=== PATIENT | female | born 1950 | race Caucasian/White ===

== ENCOUNTER 2018-06-30 14:53 | Observation (INO) ==
--- NOTE | 2018-06-30 15:08 | ERNOTE ---
Neuro HPI ER Record Presenting Symptoms: impaired speech Time Seen by Provider: 06/30/18 14:53 Source: patient Exam Limitations: no limitations Immunizations: IMMUNIZATION HX Immunizations Up to Date No History of Influenza Vaccine Yes Hx Pneumococcal Vaccination No Allergies/Adverse Reactions: Allergies Allergy/AdvReac Type Severity Reaction Status Date / Time No Known Allergies Allergy Verified 06/15/18 11:23 Home Medications: HOME MEDICATIONS Metoprolol Tartrate 50 mg PO DAILY 06/29/18 [Last Taken Unknown] - History of Present Illness Narrative: Patient had her first dose of chemo for her pancreatic cancer today. She has just finished her two hour infusions when she started to have a slurred speech around 14:40. I saw the patient in the annex around 14:45, denied any other symptoms. Review of Systems - Review of Systems Constitutional: Absent: recent illness, fever EYE: Absent: double vision, vision changes ENT: Absent: nose congestion, sore throat, throat swelling Respiratory: Absent: shortness of breath, cough, other Gastrointestinal/Abdominal: Absent: nausea, vomiting, abdominal pain Genitourinary: Present: no symptoms reported Musculoskeletal: Absent: back pain Neurological: Present: See HPI. 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 Clarence Gray, [facility]. History of biopsy Onset Date: ~05/2006 kidney History of colonoscopy Onset Date: 01/24/15 01/24/15 Tinguely-hyperplastic polyp x2. Repeat in 5 yrs d/t family hx. History of esophagogastroduodenoscopy (EGD) Onset Date: ~05/2018 Family History: Family History (Last Reviewed 06/30/18 @ 15:09 by Myesha Murphy RN) Brother Hypertension CVA (cerebral vascular accident) Cancer kidney-dx age 69 Sister Hypertension Father , age 59-MVA MVA (motor vehicle accident) age 59 Mother , age 92-colon cancer Cancer Colon-dx age 91 Brother Alive and well Sister Alive and well Social History: Preferred Language Sinhala Smoking Status Former smoker Abuse History No History of abuse Psych History No pertinent hx (Last Updated 06/10/18 @ 11:35 by Sujatha Henry DO) No Social History Section defined Physical Exam - Physical Exam General Appearance: Present: wd/wn, alert, no apparent distress, anxious Head Exam: Present: normal inspection, no evidence of injury Eye Exam: Normal inspection: bilateral, PERRL: bilateral, EOMI: bilateral Ears, Nose, Throat: Present: normal ENT inspection, normal pharynx. Absent: pharyngeal erythema, pharyngeal swelling Neck: Present: normal inspection, nontender Respiratory: Present: no respiratory distress, normal breath sounds, chest nontender, lungs clear. 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 Absent: skin rash [place] Coma Scale - Assess Eye Opening: Spontaneous Motor: Obeys Commands Verbal: Oriented - Total Coma Scale Total: 15 Initial Stroke Assessment - Date/Time of assessment Stroke Scale Date: 06/30/18 Stroke Scale Time: 14:45 - NIH Stroke Scale Level of Consciousness: Alert LOC Questions (Year and Age): Answers both correctly LOC Commands (open/close eyes/fist): Performs both correctly Lateral Gaze Paresis: None Visual Field Loss: No visual loss Facial Palsy: Normal movement Right Arm Motor (10 sec hold): No drift Left Arm Motor (10 sec hold): No drift Right Leg Motor (5 sec hold): No drift Left Leg Motor (5 sec hold): No drift Limb Ataxia (finger/nose heel/miller): Absent Sensory Loss (pinprick arms/legs/face): No sensory loss Language Aphasia (description/naming/reading): No aphasia; normal Dysarthria (speech clarity): Slurring, intelligeble Neglect Inattention (visual/tactile/auditory/spatial/person): No neglect Initial Stroke Scale Score:: 1 Progress - Results and Orders Patient's Lab Results:: I have reviewed the patient's lab results. - Vital Signs Patient's Vital Signs:: I have reviewed the patient's vital signs. - EKG EKG: NSR - sinustachycardia, nonspecific ST T wave changes EKG read: Interp. by me - CT/Ultrasound CT/Ultrasound Narrative: CT head: no acute changes - Progress/Reassessment Progress Note-Subjective: 06/30/18 15:06 mildly slurred speech 06/30/18 15:[address] with radiologist 06/30/18 15:38 speech much more fluent, able to tell story of cancer diagnosis 06/30/18 15:[address] Don 06/30/18 15:[address] Merino (oncology partner of Dr Hoyos), thinks it is unlikely drug reaction,more likely TIA do not give 48hrs infusion for now, appropriate to work up further for TIA 06/30/18 15:[address] Don, okay to admit for observation for TIA Departure Clinical Impression: TIA (transient ischemic attack) Pancreatic cancer Qualifiers: Pancreatic malignancy location: unspecified Qualified Code(s): C25.9 - Malignant neoplasm of pancreas, unspecified - Departure Disposition: Still a patient Condition: Stable
[2018-06-30 15:12] LABS: Hematocrit 29.9 % (37.0-47.0); Hemoglobin 9.9 gm/dL (12.5-16.0); Mean Cell Volume 97.4 fl (78-100); Mean Corpuscular Hemoglobin 32.2 pg (27-31); Mean Corpuscular Hgb Conc 33.1 g/dl (32-36); Mean Platelet Volume 9.5 fl (8-12.5); Neutrophil # 7.2 K/mm3 (1.3-6.0); Neutrophil % 95.5 % (42-75.0); Platelet Count 255 K/mm3 (150-450); Red Blood Count 3.07 M/mm3 (4.2-5.4); Red Cell Distribution Width 14.9 % (11.5-14.0); White Blood Count 7.6 K/mm3 (4.0-10.5)
[2018-06-30 15:26] LABS: Albumin * 2.2 gm/dl (3.4-5.0); Anion Gap 18.1 mmol/L (6.8-13.8); Bilirubin, Total 1.3 mg/dL (0.0-1.1); Ca. Corrected For Albumin 9.9 mg/dL (8.4-10.2); Calcium * 8.8 mg/dL (7.9-10.9); Carbon Dioxide 16.4 mmol/L (24-32.6); Potassium 3.5 mmol/L (3.4-4.6); Total Protein 7.2 gm/dL (6.2-8.2)
[2018-06-30 15:44] LABS: Prothrombin Time (Patient) 13.4 Seconds (9.0-11.0)
[2018-06-30 15:46] LABS: INR 1.34 INR (0.90-1.10)
[2018-06-30] MEDS ORDERED: ASPIRIN 81 MG TAB.CHEW PO ONE (16:00)
--- NOTE | 2018-06-30 21:06 | HP ---
Chief Complaint - Chief Complaint Date of Service: 06/30/18 Time of Service: 21:06 Chief Complaint: Difficulty speaking History of Present Illness: Loraine is a 68 yo female with pancreatic cancer who was in the annex today for her first treatment of chemotherapy. She had received the majority of her treatment when she bagan having difficulty speaking. Her chemo was stopped and she was sne to the ER for evaluation. There she continued to have difficulty with speaking, but this quickly resolved. She had no other reported symptoms. She was aware of what was going on, had all other neuromuscular control, and no difficulty swallowing. She has not had any other symptoms like this before. Although symptoms have completely resolved ER contacted medicine for admission for overnight monitoring of neurological status. There was no noted lip or tongue swelling. 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 Clarence Gray, [facility]. History of biopsy Onset Date: ~05/2006 kidney History of colonoscopy Onset Date: 01/24/15 01/24/15 Tinguely-hyperplastic polyp x2. Repeat in 5 yrs d/t family hx. History of esophagogastroduodenoscopy (EGD) Onset Date: ~05/2018 Family History: Family History (Last Reviewed 07/12/18 @ 14:31 by Mariajose Newberry RN) Brother Hypertension CVA (cerebral vascular accident) Cancer kidney-dx age 69 Sister Hypertension Father , age 59-MVA MVA (motor vehicle accident) age 59 Mother , age 92-colon cancer Cancer Colon-dx age 91 Brother Alive and well Sister Alive and well Social History: Patient Lives/Resources With Spouse Utilized Occupation Retired Preferred Language Sudanese Do you have any jain or No: Yazidism cultural preference? Smoking Status Former smoker Have you smoked in the past 12 No: quit 2002 months Do you dip or chew tobacco No Abuse History No History of abuse Psych History No pertinent hx Alcohol Use none Drug Use none (Last Updated 06/10/18 @ 11:35 by Sujatha Henry DO) No Social History Section defined Review Of Systems (GEN) - Review of Systems Generalized/Overall Review: Present: Weight loss. Absent: Weakness, Chills, Fever EENTM: Present: No Symptoms Reported Respiratory: Absent: Cough, Shortness of Breath Cardiac: Absent: Chest Pain, Edema, Syncope Abdominal: Present: Nausea, Abdominal Pain. Absent: Vomiting, Hematemesis, Constipation, Diarrhea, Melena Genitourinary: Present: No Symptoms Reported Neurological: Present: Weakness, Other - dysarthria Endocrine: Present: No Symptoms Reported Immunizations: IMMUNIZATION HX Immunizations Up to Date No History of Influenza Vaccine Yes Hx Pneumococcal Vaccination No Allergies/Adverse Reactions: Allergies Allergy/AdvReac Type Severity Reaction Status Date / Time No Known Allergies Allergy Verified 07/12/18 14:31 Home Medications: HOME MEDICATIONS Metoprolol Tartrate 50 mg PO DAILY 06/29/18 [Last Taken 06/29/18] Aspirin [Aspirin Chewable] 81 mg PO DAILY #30 tab.chew 07/01/18 [Last Taken Unknown] clopidogrel 75 mg tablet 75 mg PO DAILY #30 tab 07/07/18 [Last Taken Unknown] mirtazapine 15 mg tablet 15 mg PO HS #30 tab 07/07/18 [Last Taken Unknown] rosuvastatin 10 mg tablet 10 mg PO DAILY #30 tab 07/07/18 [Last Taken Unknown] Exam - Exam Vital Signs: Vital Signs - Last Taken Temp 36.7 C 06/30/18 20:11 Pulse 103 H 06/30/18 20:11 Resp 12 06/30/18 20:11 BP 112/72 06/30/18 20:11 Pulse Ox 95 06/30/18 20:11 Constitutional: Present: Alert, Oriented x3, Cooperative ENT Exam: Present: hearing grossly normal Respiratory: Present: lungs clear, normal breath sounds Cardiovascular/Chest: Present: regular rate, rhythm, no edema, no murmur Abdomen: Present: nondistended, no rebound tenderness, tender - diffuse, hypoactive Skin Exam: Present: normal color, warm/dry, no cyanosis Lymphatic: Present: no adenopathy Neurologic: Present: 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 Absent: aphasia, facial droop, sensory deficit Appearance: Present: appropriate appearance, appropriate insight Eye contact: Present: cooperative, good eye contact, normal speech Thoughts: Present: normal thought pattern, no apparent hallucination Diagnostic Studies: Abnormal Lab Results 06/30/18 06/30/18 06/30/18 Range/Units 15:05 15:05 15:05 RBC 3.07 L (4.2-5.4) M/mm3 Hgb 9.9 L (12.5-16.0) gm/dL Hct 29.9 L (37.0-47.0) % MCH 32.2 H (27-31) pg RDW 14.9 H (11.5-14.0) % Neutrophils % 95.5 H (42-75.0) % Lymphocytes % 2.4 L (20-51) % Neutrophils # 7.2 H (1.3-6.0) K/mm3 Lymphocytes # 0.18 L (1.5-3.5) k/mm3 ESR 112 H (0-15) mm/hr PT 13.4 H (9.0-11.0) Seconds INR (Anticoag Therapy) 1.34 H (0.90-1.10) INR PTT (Navarro) 40.0 H (24-32) Seconds Sodium (132-142) mmol/L Carbon Dioxide (24-32.6) mmol/L Anion Gap (6.8-13.8) mmol/L Creatinine (0.4-1.4) mg/dL Est GFR (Non-Af Amer) (60-130) mL/min Random Glucose (70-110) mg/dL Total Bilirubin (0.0-1.1) mg/dL Alkaline Phosphatase (50-170) U/L Albumin (3.4-5.0) gm/dl 06/30/18 Range/Units 15:05 RBC (4.2-5.4) M/mm3 Hgb (12.5-16.0) gm/dL Hct (37.0-47.0) % MCH (27-31) pg RDW (11.5-14.0) % Neutrophils % (42-75.0) % Lymphocytes % (20-51) % Neutrophils # (1.3-6.0) K/mm3 Lymphocytes # (1.5-3.5) k/mm3 ESR (0-15) mm/hr PT (9.0-11.0) Seconds INR (Anticoag Therapy) (0.90-1.10) INR PTT (Nicole) (24-32) Seconds Sodium 128 L (132-142) mmol/L Carbon Dioxide 16.4 L (24-32.6) mmol/L Anion Gap 18.1 H (6.8-13.8) mmol/L Creatinine 1.54 H (0.4-1.4) mg/dL Est GFR (Non-Af Amer) 36 L (60-130) mL/min Random Glucose 276 H D (70-110) mg/dL Total Bilirubin 1.3 H (0.0-1.1) mg/dL Alkaline Phosphatase 354 H (50-170) U/L Albumin 2.2 L (3.4-5.0) gm/dl Laboratory Results WBC 7.6 K/mm3 (4.0-10.5) 06/30/18 15:05 RBC 3.07 M/mm3 (4.2-5.4) L 06/30/18 15:05 Hgb 9.9 gm/dL (12.5-16.0) L 06/30/18 15:05 Hct 29.9 % (37.0-47.0) L 06/30/18 15:05 MCV 97.4 fl (78-100) 06/30/18 15:05 MCH 32.2 pg (27-31) H 06/30/18 15:05 MCHC 33.1 g/dl (32-36) 06/30/18 15:05 RDW 14.9 % (11.5-14.0) H 06/30/18 15:05 Plt Count 255 K/mm3 (150-450) 06/30/18 15:05 MPV 9.5 fl (8-12.5) 06/30/18 15:05 Immature Gran % (Auto) 0.40 % (0.001-0.429) 06/30/18 15:05 Immature Gran # (Auto) 0.03 K/mm3 (0.000-0.0310) 06/30/18 15:05 Neutrophils % 95.5 % (42-75.0) H 06/30/18 15:05 Lymphocytes % 2.4 % (20-51) L 06/30/18 15:05 Monocytes % 1.6 % (0.0-9) 06/30/18 15:05 Eosinophils % 0.0 % (0.0-3.0) 06/30/18 15:05 Basophils % 0.1 % (0.0-1.0) 06/30/18 15:05 Nucleated RBC % 0.0 k/mm3 (0-1) 06/30/18 15:05 Neutrophils # 7.2 K/mm3 (1.3-6.0) H 06/30/18 15:05 Lymphocytes # 0.18 k/mm3 (1.5-3.5) L 06/30/18 15:05 Monocytes # 0.1 k/mm3 (0.0-1.0) 06/30/18 15:05 Eosinophils # 0.0 k/mm3 (0.0-0.7) 06/30/18 15:05 Absolute Basophils 0.0 k/mm3 (0.0-0.1) 06/30/18 15:05 ESR 112 mm/hr (0-15) H 06/30/18 15:05 PT 13.4 Seconds (9.0-11.0) H 06/30/18 15:05 INR (Anticoag Therapy) 1.34 INR (0.90-1.10) H 06/30/18 15:05 PTT (Nicole) 40.0 Seconds (24-32) H 06/30/18 15:05 Sodium 128 mmol/L (132-142) L 06/30/18 15:05 Plasma Sodium 131 mmol/L (130-142) 06/30/18 15:05 Potassium 3.5 mmol/L (3.4-4.6) 06/30/18 15:05 Chloride 97 mmol/L (97-106) 06/30/18 15:05 Carbon Dioxide 16.4 mmol/L (24-32.6) L 06/30/18 15:05 Anion Gap 18.1 mmol/L (6.8-13.8) H 06/30/18 15:05 BUN 20 mg/dL (3-23) 06/30/18 15:05 Creatinine 1.54 mg/dL (0.4-1.4) H 06/30/18 15:05 Est GFR (Non-Af Amer) 36 mL/min (60-130) L 06/30/18 15:05 BUN/Creatinine Ratio 13.0 (9.0-21.6) 06/30/18 15:05 Random Glucose 276 mg/dL (70-110) H D 06/30/18 15:05 Calcium 8.8 mg/dL (7.9-10.9) 06/30/18 15:05 Calcium Adj for Albumin 9.9 mg/dL (8.4-10.2) 06/30/18 15:05 Total Bilirubin 1.3 mg/dL (0.0-1.1) H 06/30/18 15:05 AST 34 U/L (0-48) 06/30/18 15:05 ALT 34 U/L (19-67) 06/30/18 15:05 Alkaline Phosphatase 354 U/L (50-170) H 06/30/18 15:05 Total Protein 7.2 gm/dL (6.2-8.2) 06/30/18 15:05 Albumin 2.2 gm/dl (3.4-5.0) L 06/30/18 15:05 Assessment/Plan - Narrative Narrative: Loraine is a 68 yo female with pancreatic cancer. She had dysarthria that quickly resolved while receiving chemotherapy. Will admit to observation and monitor neurological status overnight. May also consider allergic reaction t o chemo, but this is not likely the reaction one would expect. Will plan to get outpatient neurological imaging. - Assessment/Plan (1) TIA (transient ischemic attack) Problem: Acute (2) Pancreatic cancer Problem: Chronic Qualifiers: Pancreatic malignancy location: unspecified Qualified Code(s): C25.9 - Malignant neoplasm of pancreas, unspecified
[2018-07-01] MEDS ORDERED: METOPROLOL TARTRATE 50 MG TABLET PO SCH (12:30)
[2018-07-01] MEDS ORDERED: HEPARIN SOD.,PORCINE 100 UNITS/ML IV ONE (15:01)
--- NOTE | 2018-07-01 15:07 | DS ---
(1) TIA (transient ischemic attack) Problem: Acute Description of Stay: Loraine is a 68 yo female with pancreatic cancer who was admitted to observation after a brief dysarthria episode at the end of her first chemotherapy infusion. She had difficulty speaking for about an hour, which resolved spontaneously. She had no focal sensory loss or motor weakness. She had a head CT and a chest xray which showed no acute abnormality. She was admitted for observation but had no further episodes. She will have an outpatient brain MRI with and without contrast for further evaluation. She will follow up with oncology in regards to the safety of chemotherapy. She was receiving the last minutes of the infusion when her symptoms began, but I feel these symptoms are atypical to be a reaction from the infusion itself. Leading diagnosis at this time is a TIA. Will therefore have her start taking a low dose aspirin daily. Procedures Performed: none Results and Findings: Lab Pending Results 06/30/18 15:05: WBC 7.6, RBC 3.07 L, Hgb 9.9 L, Hct 29.9 L, MCV 97.4, MCH 32.2 H, MCHC 33.1, RDW 14.9 H, Plt Count 255, MPV 9.5, Immature Gran % (Auto) 0.40, Immature Gran # (Auto) 0.03, Neutrophils % 95.5 H, Lymphocytes % 2.4 L, Monocytes % 1.6, Eosinophils % 0.0, Basophils % 0.1, Nucleated RBC % 0.0, Neutrophils # 7.2 H, Lymphocytes # 0.18 L, Monocytes # 0.1, Eosinophils # 0.0, Absolute Basophils 0.0 06/30/18 15:05: ESR 112 H 06/30/18 15:05: PT 13.4 H, INR (Anticoag Therapy) 1.34 H, PTT (Nicole) 40.0 H 06/30/18 15:05: Sodium 128 L, Plasma Sodium 131, Potassium 3.5, Chloride 97, Carbon Dioxide 16.4 L, Anion Gap 18.1 H, BUN 20, Creatinine 1.54 H, Est GFR (Non-Af Amer) 36 L, BUN/Creatinine Ratio 13.0, Random Glucose 276 H D, Calcium 8.8, Calcium Adj for Albumin 9.9, Total Bilirubin 1.3 H, AST 34, ALT 34, Alkaline Phosphatase 354 H, Total Protein 7.2, Albumin 2.2 L Discharge Location: Home Disposition: Home self-care Condition: Fair Discharge Activity: Activity as tolerated Discharge Diet: General/regular food Referrals: Raghav Don DO [Primary Care Provider] - One Week Michael Merino MD [Non Staff Physicians] - 07/04/18 1:00 pm Problem Oriented Discharge Instructions to Patient/Family: Transient Ischemic Attack, [id number] Additional Patient Instructions (free text): -Please make TCM appointment unless prison discharge. Thank you! Annette @ [phone]. Appointment with oncologist, Dr. Merino, on WednesdayJuly 04 at 1:00 PM at [facility]. [address] [place] [address]. Park on . there's a large parking lot there, go in main entrance, take a right and you will see the sign for ([facility]). . Prescriptions (Any new or edited meds): Aspirin [Aspirin Chewable] 81 mg PO DAILY #30 tab.chew Complete Home Medications List: Complete Home Medication List: Metoprolol Tartrate 50 mg PO DAILY 06/29/18 Aspirin [Aspirin Chewable] 81 mg PO DAILY #30 tab.chew 07/01/18 Metoprolol Tartrate [Lopressor] 50 mg PO DAILY tablet 07/01/18 Amb Orders for Discharge: MRI Brain W/WO * Time Frame: 07/05/18, Location: Radiology
[2018-07-01 15:54] VITALS: BP 112/76
== END 2018-07-01 16:09 | disposition home or self-care (01) ==
LOC: ER 14:53 → MS 14:53
PROVIDERS: ADMIT Family Medicine; ATTEND Family Medicine
CPT/HCPCS: 36415; 70450; 71010; 71045; 80053; 85025; 85610; 85652; 85730; 93005; 96365; 99285; G0378

== ENCOUNTER 2018-07-12 10:59 | Inpatient (IN) ==
[2018-07-12] MEDS ORDERED: NORMAL SALINE 1,000 ML IV ONE ×2 (11:12→12:25)
--- NOTE | 2018-07-12 11:16 | ERNOTE ---
Medical Problem HPI - General Chief Complaint: General Assessment Time Seen by Provider: 07/12/18 11:08 Source: patient, family Exam Limitations: no limitations - Immun/Allergies/Home Medications Immunizations: IMMUNIZATION HX Immunizations Up to Date No History of Influenza Vaccine Yes Hx Pneumococcal Vaccination No Allergies/Adverse Reactions: Allergies No Known Allergies Allergy (Verified 07/12/18 11:07) Home Medications: HOME MEDICATIONS Metoprolol Tartrate 50 mg PO DAILY 06/29/18 [Last Taken 06/29/18] Aspirin [Aspirin Chewable] 81 mg PO DAILY #30 tab.chew 07/01/18 [Last Taken Unknown] clopidogrel 75 mg tablet 75 mg PO DAILY #30 tab 07/07/18 [Last Taken Unknown] mirtazapine 15 mg tablet 15 mg PO HS #30 tab 07/07/18 [Last Taken Unknown] rosuvastatin 10 mg tablet 10 mg PO DAILY #30 tab 07/07/18 [Last Taken Unknown] - History of Present History Narrative: Patient is currently being treated for pancreatic cancer and ever since the first chemotherapy treatment patient has had uncontrolled diarrhea. Patient comes in now week, feels dehydrated and is lost all taste for any food. Timing: constant Severity: moderate, severe Review of Systems - Review of Systems Constitutional: Present: See HPI EYE: Present: no symptoms reported ENT: Present: See HPI Respiratory: Present: no symptoms reported Cardiology: Present: no symptoms reported Gastrointestinal/Abdominal: Present: See HPI Genitourinary: Present: no symptoms reported Musculoskeletal: Present: no symptoms reported Skin: Present: no symptoms reported Neurological: Present: no symptoms reported Endocrine: Present: no symptoms reported Hematologic/Lymphatic: Present: no symptoms reported Psych: Present: no symptoms reported Medical History (Last Reviewed 07/12/18 @ 11:08 by Annita Freitas RN) Elevated liver enzymes (Acute) Onset Date: 04/03/18 Hypertension (Chronic) Onset Date: ~03/28/04 Chronic renal insufficiency (Chronic) Onset Date: ~04/24/10 Stage 4 CKD (chronic kidney disease) (Chronic) Onset Date: Unknown 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 Clarence Gray, [facility]. History of biopsy Onset Date: ~05/2006 kidney History of colonoscopy Onset Date: 01/24/15 01/24/15 Tinguely-hyperplastic polyp x2. Repeat in 5 yrs d/t family hx. History of esophagogastroduodenoscopy (EGD) Onset Date: ~05/2018 Family History: Family History (Last Reviewed 07/12/18 @ 11:08 by Annita Freitas RN) Brother Hypertension CVA (cerebral vascular accident) Cancer kidney-dx age 69 Sister Hypertension Father , age 59-MVA MVA (motor vehicle accident) age 59 Mother , age 92-colon cancer Cancer Colon-dx age 91 Brother Alive and well Sister Alive and well Social History: Preferred Language Burmese Smoking Status Former smoker Abuse History No History of abuse Psych History No pertinent hx Alcohol Use none Drug Use none (Last Reviewed 07/07/18 @ 10:19 by Edwige Kat RN) No Social History Section defined Physical Exam - Physical Exam General Appearance: Present: wd/wn, alert, moderate distress, cachetic Head Exam: Present: normal inspection, no evidence of injury Eye Exam: Normal inspection: bilateral, PERRL: bilateral Ears, Nose, Throat: Present: dry mucous membranes, other - Thrush-like appearance to the oral cavity Neck: Present: normal inspection, nontender Respiratory: Present: no respiratory distress, normal breath sounds, no accessory muscle use, chest nontender, lungs clear Cardiovascular/Chest: Present: no murmur, normal peripheral pulses, tachycardia Gastrointestinal/Abdominal: Present: normal bowel sounds, nondistended, soft, no organomegaly, tenderness - Generalized mild Rectal Exam: Present: deferred Pelvic Exam: Present: deferred Back Exam: Present: normal inspection, normal range of motion Extremity Exam: Present: normal inspection, non-tender, no edema, normal range of motion Neurological Exam: Present: alert, oriented, normal mood/affect Skin Exam: Present: normal color, warm/dry Lymphatic Exam: Present: no adenopathy Progress - Results and Orders Patient's Lab Results:: I have reviewed the patient's lab results. - Vital Signs Patient's Vital Signs:: I have reviewed the patient's vital signs. Vital Signs: Vital Signs 07/12/18 11:04 Temperature 35.8 C L Pulse Rate 114 H Respiratory Rate 12 Blood Pressure 95/69 O2 Sat by Pulse Oximetry 95 - X-Ray X-Ray #1 X-Ray: abdomen Interpretation: Reviewed by me - Progress/Reassessment Chief Complaint: General Assessment Plan - Plan Plan: Patient appears to be in acute renal failure secondary to dehydration, although this could be a profound reaction to her chemotherapy as her white count is 1.1. Patient also appears to have an infectious colitis being present as she has 24% bands present on her blood work. Patient reacted rather violently to only half a dose of her chemotherapy and I had a discussion with both patient and the family regarding hospice care for her. Patient will be admitted for IV hydration, as we will attempt to try to get her renal function back to her baseline. Patient also be started on antibiotics for the colitis and the patient and the family requested that she be a DNR. Departure Clinical Impression: Dehydration, severe, Infectious colitis - Departure Disposition: Still a patient Condition: Fair Referrals: Raghav Don DO [Primary Care Provider] - Critical Care Note - Critical Care Note Total Time (mins): 40 Comments: Patient required several liters of normal saline just to help stabilize her blood pressure. Patient will need to be admitted and likely hospice consult as we might have reached the limit of what we can get back for her. She appears to have a neutropenic infectious colitis which will also be problematic and antibiotics were started for her.
[2018-07-12 11:49] LABS: Hematocrit 27.7 % (37.0-47.0); Hemoglobin 9.4 gm/dL (12.5-16.0); Mean Corpuscular Hemoglobin 31.2 pg (27-31); Mean Corpuscular Hgb Conc 33.9 g/dl (32-36); Platelet Count 157 K/mm3 (150-450); Red Blood Count 3.01 M/mm3 (4.2-5.4); Red Cell Distribution Width 14.2 % (11.5-14.0); White Blood Count 1.1 K/mm3 (4.0-10.5)
[2018-07-12 11:51] LABS: Total Cells Counted 100
[2018-07-12 12:15] LABS: Neutrophil 35 % (42-75)
[2018-07-12 12:16] LABS: Band 24 % (0-2.0); Immature Granulocyte 13 (0-1); Lymphocyte 16 % (20-51); Monocyte 12 % (0-9); Neutrophil # 0.4 K/mm3 (1.3-6.0); Platelet Estimate Normal (NORMAL)
[2018-07-12 12:17] LABS: Hypochromia 1+; Microcytosis 1+
[2018-07-12 12:18] LABS: Albumin * 1.5 gm/dl (3.4-5.0); Anion Gap 25.6 mmol/L (6.8-13.8); BUN/Creatinine Ratio 16.8 (9.0-21.6); Bilirubin, Total 0.8 mg/dL (0.0-1.1); Ca. Corrected For Albumin 10.6 mg/dL (8.4-10.2); Calcium * 8.9 mg/dL (7.9-10.9); Carbon Dioxide 18.1 mmol/L (24-32.6); Potassium 3.7 mmol/L (3.4-4.6); Total Protein 6.5 gm/dL (6.2-8.2)
[2018-07-12] MEDS ORDERED: LEVOFLOXACIN IN DEXTROSE 5 % 500 MG/100 ML BAG IV SCH (13:30)
[2018-07-12 13:34] LABS: Urine Bilirubin 1 mg/dl (NEGATIVE); Urine Ketone Negative (NEGATIVE); Urine Nitrite Negative (NEGATIVE); Urine Protein 15 mg/dL (NEGATIVE); Urine Specific Gravity >=1.030 SP.GR. (1.005-1.010); Urine Urobilinogen Normal (NORMAL); Urine pH 5.5 pH (5.0-7.0)
[2018-07-12 13:45] LABS: Urine Appearance Clear (CLEAR); Urine Blood 5 /ul (NEGATIVE); Urine Color Yellow
[2018-07-12 13:46] LABS: Urine Amorphous Sediment Few - 1+ (NONE-FEW); Urine Bacteria TRACE; Urine RBC 0-5 /hpf (0-5); Urine WBC None Seen /hpf (0-5)
[2018-07-12] MEDS: metroNIDAZOLE 500 MG TABLET PO SCH (16:41)
[2018-07-12] MEDS: NORMAL SALINE 1,000 ML IV PRN (16:41)
--- NOTE | 2018-07-12 16:50 | HP ---
Chief Complaint - Chief Complaint Date of Service: 07/12/18 Time of Service: 16:49 Chief Complaint: Diarrhea, weakness, nausea, vomiting History of Present Illness: Loraine is a 68 yo female with pancreatic cancer. She has recently sta rted chemotherapy. She has had decreased appetite, reports last good meal was a week ago. She has nausea, vomiting, and diarrhea. Denies blood in stool. She reports decreased urination. She was supposed to have her next chemotherapy treatment tomorrow. Stool sample was collected in the ER and is positive for C. Diff. Two weeks ago she was admitted into observation after a brief episode of dysarthria during her first chemotherapy treatment. MRI showed a small potential ischemic infarct. She was started on Plavix and Crestor. She was also recently started on remeron last week for appetite stimulation, depression, and insomnia. Loraine and family had a discussion in the ER with the ERP in regards to hospice. She would like additional information at this time, but consents to hospice consultation. 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 Clarence Gray, [facility]. History of biopsy Onset Date: ~05/2006 kidney History of colonoscopy Onset Date: 01/24/15 01/24/15 Tinguely-hyperplastic polyp x2. Repeat in 5 yrs d/t family hx. History of esophagogastroduodenoscopy (EGD) Onset Date: ~05/2018 Family History: Family History (Last Reviewed 07/12/18 @ 14:31 by Mariajose Newberry RN) Brother Hypertension CVA (cerebral vascular accident) Cancer kidney-dx age 69 Sister Hypertension Father , age 59-MVA MVA (motor vehicle accident) age 59 Mother , age 92-colon cancer Cancer Colon-dx age 91 Brother Alive and well Sister Alive and well Social History: Patient Lives/Resources Home Utilized Preferred Language Romansh Do you have any moravian or No cultural preference? Smoking Status Former smoker Have you smoked in the past 12 No months Do you dip or chew tobacco No Abuse History No History of abuse Psych History No pertinent hx Alcohol Use none Drug Use none (Last Reviewed 07/07/18 @ 10:19 by Edwige Kat RN) No Social History Section defined Review Of Systems (GEN) - Review of Systems Generalized/Overall Review: Present: Weakness, Fatigue, Weight loss. Absent: Chills, Fever, Diaphoresis EENTM: Present: No Symptoms Reported Respiratory: Absent: Cough, Shortness of Breath Cardiac: Absent: Chest Pain, Edema, Palpitations Abdominal: Present: Nausea, Vomiting, Abdominal Pain, Diarrhea. Absent: Hematemesis, Melena, Bright blood from rectum Genitourinary: Present: Oliguria. Absent: Burning Musculoskeletal: Present: No Symptoms Reported Neurological: Present: Depressed Skin: Present: No Symptoms Reported Immunizations: IMMUNIZATION HX Immunizations Up to Date No History of Influenza Vaccine Yes Hx Pneumococcal Vaccination No Allergies/Adverse Reactions: Allergies Allergy/AdvReac Type Severity Reaction Status Date / Time No Known Allergies Allergy Verified 07/12/18 14:31 Home Medications: HOME MEDICATIONS Metoprolol Tartrate 50 mg PO DAILY 06/29/18 [Last Taken 06/29/18] Aspirin [Aspirin Chewable] 81 mg PO DAILY #30 tab.chew 07/01/18 [Last Taken Unknown] clopidogrel 75 mg tablet 75 mg PO DAILY #30 tab 07/07/18 [Last Taken Unknown] mirtazapine 15 mg tablet 15 mg PO HS #30 tab 07/07/18 [Last Taken Unknown] rosuvastatin 10 mg tablet 10 mg PO DAILY #30 tab 07/07/18 [Last Taken Unknown] Exam - Exam Vital Signs: Vital Signs - Last Taken Temp 36.0 C 07/12/18 13:21 Pulse 106 H 07/12/18 13:21 Resp 18 07/12/18 13:21 BP 90/60 07/12/18 13:21 Pulse Ox 98 07/12/18 13:21 Constitutional: Present: Alert, Oriented x3, Cooperative ENT Exam: Present: hearing grossly normal Eye Exam: bilateral eye: normal inspection Respiratory: Present: lungs clear, normal breath sounds Cardiovascular/Chest: Present: no murmur, tachycardia Abdomen: Present: nondistended, no hepatospenomegaly, tender - diffuse, hypoactive Extremity: Present: normal inspection Skin Exam: Present: normal color, warm/dry, no cyanosis Appearance: Present: appropriate appearance, appropriate insight Eye contact: Present: cooperative, good eye contact, normal speech Thoughts: Present: normal thought pattern, no apparent hallucination Diagnostic Studies: Abnormal Lab Results 07/12/18 07/12/18 07/12/18 Range/Units 11:35 11:35 13:16 WBC 1.1 L (4.0-10.5) K/mm3 RBC 3.01 L (4.2-5.4) M/mm3 Hgb 9.4 L (12.5-16.0) gm/dL Hct 27.7 L (37.0-47.0) % MCH 31.2 H (27-31) pg RDW 14.2 H (11.5-14.0) % Neutrophils % (Manual) 35 L (42-75) % Band Neuts % (Manual) 24 H (0-2.0) % Lymphocytes % (Manual) 16 L (20-51) % Monocytes % (Manual) 12 H (0-9) % Immature Granulocytes 13 H (0-1) Neutrophils # (Manual) 0.4 L (1.3-6.0) K/mm3 Lymphocytes # (Manual) 0.2 L (1.5-3.5) k/mm3 Sodium 130 L (132-142) mmol/L Chloride 90 L (97-106) mmol/L Carbon Dioxide 18.1 L (24-32.6) mmol/L Anion Gap 25.6 H (6.8-13.8) mmol/L BUN 80 H D (3-23) mg/dL Creatinine 4.75 H D (0.4-1.4) mg/dL Est GFR (Non-Af Amer) 10 L D (60-130) mL/min Random Glucose 127 H (70-110) mg/dL Calcium Adj for Albumin 10.6 H (8.4-10.2) mg/dL ALT 18 L (19-67) U/L Albumin 1.5 L (3.4-5.0) gm/dl Lipase 27 L (73-393) U/L Urine Protein 15 H (NEGATIVE) mg/dL Urine Blood 5 H (NEGATIVE) /ul Urine Bilirubin 1 H (NEGATIVE) mg/dl Stl C.difficile Tox A&B (Negative) 07/12/18 Range/Units 13:20 WBC (4.0-10.5) K/mm3 RBC (4.2-5.4) M/mm3 Hgb (12.5-16.0) gm/dL Hct (37.0-47.0) % MCH (27-31) pg RDW (11.5-14.0) % Neutrophils % (Manual) (42-75) % Band Neuts % (Manual) (0-2.0) % Lymphocytes % (Manual) (20-51) % Monocytes % (Manual) (0-9) % Immature Granulocytes (0-1) Neutrophils # (Manual) (1.3-6.0) K/mm3 Lymphocytes # (Manual) (1.5-3.5) k/mm3 Sodium (132-142) mmol/L Chloride (97-106) mmol/L Carbon Dioxide (24-32.6) mmol/L Anion Gap (6.8-13.8) mmol/L BUN (3-23) mg/dL Creatinine (0.4-1.4) mg/dL Est GFR (Non-Af Amer) (60-130) mL/min Random Glucose (70-110) mg/dL Calcium Adj for Albumin (8.4-10.2) mg/dL ALT (19-67) U/L Albumin (3.4-5.0) gm/dl Lipase (73-393) U/L Urine Protein (NEGATIVE) mg/dL Urine Blood (NEGATIVE) /ul Urine Bilirubin (NEGATIVE) mg/dl Stl C.difficile Tox A&B Positive H (Negative) Laboratory Results WBC 1.1 K/mm3 (4.0-10.5) L 07/12/18 11:35 RBC 3.01 M/mm3 (4.2-5.4) L 07/12/18 11:35 Hgb 9.4 gm/dL (12.5-16.0) L 07/12/18 11:35 Hct 27.7 % (37.0-47.0) L 07/12/18 11:35 MCV 92.0 fl (78-100) 07/12/18 11:35 MCH 31.2 pg (27-31) H 07/12/18 11:35 MCHC 33.9 g/dl (32-36) 07/12/18 11:35 RDW 14.2 % (11.5-14.0) H 07/12/18 11:35 Plt Count 157 K/mm3 (150-450) 07/12/18 11:35 MPV 10.0 fl (8-12.5) 07/12/18 11:35 Neutrophils % (Manual) 35 % (42-75) L 07/12/18 11:35 Band Neuts % (Manual) 24 % (0-2.0) H 07/12/18 11:35 Lymphocytes % (Manual) 16 % (20-51) L 07/12/18 11:35 Monocytes % (Manual) 12 % (0-9) H 07/12/18 11:35 Immature Granulocytes 13 (0-1) H 07/12/18 11:35 Neutrophils # (Manual) 0.4 K/mm3 (1.3-6.0) L 07/12/18 11:35 Lymphocytes # (Manual) 0.2 k/mm3 (1.5-3.5) L 07/12/18 11:35 Monocytes # (Manual) 0.1 k/mm3 (0.0-1.0) 07/12/18 11:35 Platelet Estimate Normal (NORMAL) 07/12/18 11:35 Hypochromasia 1+ 07/12/18 11:35 Microcytosis 1+ 07/12/18 11:35 Elliptocytes 1+ 07/12/18 11:35 Sodium 130 mmol/L (132-142) L 07/12/18 11:35 Plasma Sodium 130 mmol/L (130-142) 07/12/18 11:35 Potassium 3.7 mmol/L (3.4-4.6) 07/12/18 11:35 Chloride 90 mmol/L (97-106) L 07/12/18 11:35 Carbon Dioxide 18.1 mmol/L (24-32.6) L 07/12/18 11:35 Anion Gap 25.6 mmol/L (6.8-13.8) H 07/12/18 11:35 BUN 80 mg/dL (3-23) H D 07/12/18 11:35 Creatinine 4.75 mg/dL (0.4-1.4) H D 07/12/18 11:35 Est GFR (Non-Af Amer) 10 mL/min (60-130) L D 07/12/18 11:35 BUN/Creatinine Ratio 16.8 (9.0-21.6) 07/12/18 11:35 Random Glucose 127 mg/dL (70-110) H 07/12/18 11:35 Lactic Acid, Venous 1.6 mmol/L (0.4-2.0) 07/12/18 11:35 Calcium 8.9 mg/dL (7.9-10.9) 07/12/18 11:35 Calcium Adj for Albumin 10.6 mg/dL (8.4-10.2) H 07/12/18 11:35 Magnesium 2.0 mg/dL (1.2-2.8) 07/12/18 11:35 Total Bilirubin 0.8 mg/dL (0.0-1.1) 07/12/18 11:35 AST 20 U/L (0-48) 07/12/18 11:35 ALT 18 U/L (19-67) L 07/12/18 11:35 Alkaline Phosphatase 154 U/L (50-170) 07/12/18 11:35 Total Protein 6.5 gm/dL (6.2-8.2) 07/12/18 11:35 Albumin 1.5 gm/dl (3.4-5.0) L 07/12/18 11:35 Lipase 27 U/L (73-393) L 07/12/18 11:35 Urine Color Yellow 07/12/18 13:16 Urine Appearance Clear (CLEAR) 07/12/18 13:16 Urine pH 5.5 pH (5.0-7.0) 07/12/18 13:16 Ur Specific [place] >=1.030 SP.GR. (1.005-1.010) 07/12/18 13:16 Urine Protein 15 mg/dL (NEGATIVE) H 07/12/18 13:16 Urine Glucose (UA) Negative mg/dL (NEGATIVE) 07/12/18 13:16 Urine Ketones Negative mg/dL (NEGATIVE) 07/12/18 13:16 Urine Blood 5 /ul (NEGATIVE) H 07/12/18 13:16 Urine Nitrate Negative (NEGATIVE) 07/12/18 13:16 Urine Bilirubin 1 mg/dl (NEGATIVE) H 07/12/18 13:16 Urine Ictotest Negative (NEGATIVE) 07/12/18 13:16 Prot Sulfosalicylic Acd Negative mg/dL (0) 07/12/18 13:16 Urine Urobilinogen Normal EU/dl (NORMAL) 07/12/18 13:16 Ur Leukocyte Esterase Negative /ul (NEGATIVE) 07/12/18 13:16 Urine RBC 0-5 /hpf (0-5) 07/12/18 13:16 Urine WBC None seen /hpf (0-5) 07/12/18 13:16 Ur Epithelial Cells None seen /hpf (0-5) 07/12/18 13:16 Amorphous Sediment Few - 1+ (NONE-FEW) 07/12/18 13:16 Urine Bacteria Trace (NONE) 07/12/18 13:16 Urine Culture Comments Culture to follow 07/12/18 13:16 Stl C.difficile Tox A&B Positive (Negative) H 07/12/18 13:20 Assessment/Plan - Narrative Narrative: Loraine is a 68 yo female with: 1) Severe Dehydration with Acute renal failure. Will treat with IV fluids and monitor renal function. Likely secondary to C. Diff diarrhea, pancreatic cancer and chemotherapy causing decreased appetite and nausea/vomiting. 2) C. Diff - Treat with metronidazole 3) Acute Renal Failure - IV fluids and monitor renal function. 4) Social - Loraine is thinking about hospice and would like to speak with the hospice team in regards to her pancreatic cancer. Due to severity of dehydration and C. Diff, expect >2 midnights for treatment and monitoring of response. Will admit to acute inpatient. - Assessment/Plan (1) Acute renal failure Problem: Acute (2) Clostridium difficile diarrhea Problem: Acute (3) Pancreatic cancer Problem: Acute Qualifiers: Pancreatic malignancy location: unspecified Qualified Code(s): C25.9 - Malignant neoplasm of pancreas, unspecified (4) Dehydration, severe Problem: Acute
[2018-07-12] MEDS: MIRTAZAPINE 15 MG TABLET PO SCH (21:23)
[2018-07-12] MEDS: SACCHAROMYCES BOULARDII 250 MG CAPSULE PO SCH (21:23)
[2018-07-12] MEDS: ROSUVASTATIN CALCIUM 10 MG TABLET PO SCH (21:24)
[2018-07-13] MEDS: metroNIDAZOLE 500 MG TABLET PO SCH ×3 (00:03→16:05)
[2018-07-13] MEDS: NORMAL SALINE 1,000 ML IV PRN ×4 (00:03→22:04)
[2018-07-13 09:10] LABS: Hematocrit 24.7 % (37.0-47.0); Hemoglobin 8.3 gm/dL (12.5-16.0); Mean Cell Volume 93.9 fl (78-100); Mean Corpuscular Hemoglobin 31.6 pg (27-31); Mean Corpuscular Hgb Conc 33.6 g/dl (32-36); Platelet Count 145 K/mm3 (150-450); Red Blood Count 2.63 M/mm3 (4.2-5.4); Red Cell Distribution Width 14.4 % (11.5-14.0); White Blood Count 2.3 K/mm3 (4.0-10.5)
[2018-07-13 09:17] LABS: Albumin * 1.2 gm/dl (3.4-5.0); BUN/Creatinine Ratio 19.4 (9.0-21.6); Bilirubin, Total 0.5 mg/dL (0.0-1.1); Ca. Corrected For Albumin 10.3 mg/dL (8.4-10.2); Calcium * 8.4 mg/dL (7.9-10.9); Carbon Dioxide 16.5 mmol/L (24-32.6); Potassium 3.5 mmol/L (3.4-4.6); Total Protein 5.4 gm/dL (6.2-8.2)
[2018-07-13 09:18] LABS: Total Cells Counted 100
[2018-07-13] MEDS: CLOPIDOGREL BISULFATE 75 MG TABLET PO SCH (09:32)
[2018-07-13] MEDS: SACCHAROMYCES BOULARDII 250 MG CAPSULE PO SCH ×2 (09:32→22:21)
[2018-07-13] MEDS: METOPROLOL TARTRATE 50 MG TABLET PO SCH (09:32)
[2018-07-13 09:37] LABS: Band 33 % (0-2.0); Eosinophil 3 % (0-3); Immature Granulocyte 10 (0-1); Lymphocyte 7 % (20-51); Monocyte 1 % (0-9); Neutrophil 46 % (42-75); Neutrophil # 1.1 K/mm3 (1.3-6.0)
[2018-07-13 09:38] LABS: Dohle Bodies 1+; Platelet Estimate Decreased (NORMAL); Toxic Granulation 2+
[2018-07-13] MEDS: ROSUVASTATIN CALCIUM 10 MG TABLET PO SCH (22:21)
[2018-07-13] MEDS: MIRTAZAPINE 15 MG TABLET PO SCH (22:22)
--- NOTE | 2018-07-13 23:23 | PN ---
Subjective - Date and Time Seen Date: 07/13/18 Time: 12:30 Subjective Narrative: Loraine reports continued nausea and lack of appetite. No fever, chills. Reports weakness. Diarrhea is less. Objective - Vitals Vitals: Last Vital Signs Temp 36.3 C 07/13/18 22:01 Pulse 100 07/13/18 22:01 Resp 16 07/13/18 22:01 BP 98/68 07/13/18 22:01 Pulse Ox 93 07/13/18 22:01 - Abnormal Lab Findings Abnormal Lab Findings: Abnormal Lab Results 07/13/18 07/13/18 Range/Units 08:57 08:57 WBC 2.3 L D (4.0-10.5) K/mm3 RBC 2.63 L (4.2-5.4) M/mm3 Hgb 8.3 L (12.5-16.0) gm/dL Hct 24.7 L (37.0-47.0) % MCH 31.6 H (27-31) pg RDW 14.4 H (11.5-14.0) % Plt Count 145 L (150-450) K/mm3 Band Neuts % (Manual) 33 H (0-2.0) % Lymphocytes % (Manual) 7 L (20-51) % Immature Granulocytes 10 H (0-1) Neutrophils # (Manual) 1.1 L (1.3-6.0) K/mm3 Lymphocytes # (Manual) 0.2 L (1.5-3.5) k/mm3 Platelet Estimate Decreased L (NORMAL) Carbon Dioxide 16.5 L (24-32.6) mmol/L Anion Gap 23.0 H (6.8-13.8) mmol/L BUN 80 H (3-23) mg/dL Creatinine 4.13 H D (0.4-1.4) mg/dL Est GFR (Non-Af Amer) 11 L (60-130) mL/min Calcium Adj for Albumin 10.3 H (8.4-10.2) mg/dL ALT 12 L (19-67) U/L Total Protein 5.4 L (6.2-8.2) gm/dL Albumin 1.2 L (3.4-5.0) gm/dl - Exam Constitutional: Present: Alert, Oriented x3, Cooperative ENT Exam: Present: hearing grossly normal Respiratory: Present: lungs clear, normal breath sounds Cardiovascular/Chest: Present: regular rate, rhythm, no murmur Abdomen: Present: Normal bowel sounds, soft, nontender, nondistended Skin Exam: Present: warm/dry, no cyanosis, jaundice Assessment/Plan Plan Narrative: Continue flagyl and IV fluids for hydration. Renal function is improving, but needs additional fluids. Will have Loraine speak with hospice in regards to pancreatic cancer. She is unsure if she wants to continue with chemotherapy. - Problems/Diagnosis (1) Acute renal failure Problem: Acute Qualifiers: Acute renal failure type: with acute renal cortical necrosis Qualified Code(s): N17.1 - Acute kidney failure with acute cortical necrosis (2) Clostridium difficile diarrhea Problem: Acute (3) Pancreatic cancer Problem: Chronic Qualifiers: Pancreatic malignancy location: unspecified Qualified Code(s): C25.9 - Malignant neoplasm of pancreas, unspecified (4) Dehydration, severe Problem: Acute
[2018-07-14] MEDS: metroNIDAZOLE 500 MG TABLET PO SCH ×3 (01:29→16:00)
[2018-07-14] MEDS ORDERED: METOPROLOL TARTRATE 1 MG/ML AMPUL IV ONE ×2 (01:30→02:49)
[2018-07-14] MEDS ORDERED: METOPROLOL TARTRATE 25 MG TABLET PO ONE (01:30)
[2018-07-14] MEDS: NORMAL SALINE 1,000 ML IV PRN ×3 (04:49→19:04)
[2018-07-14] MEDS: SACCHAROMYCES BOULARDII 250 MG CAPSULE PO SCH ×2 (08:13→21:48)
[2018-07-14] MEDS: METOPROLOL TARTRATE 50 MG TABLET PO SCH (08:13)
[2018-07-14] MEDS: CLOPIDOGREL BISULFATE 75 MG TABLET PO SCH (08:13)
--- NOTE | 2018-07-14 09:00 | PN ---
Subjective - Date and Time Seen Date: 07/14/18 Time: 08:49 Subjective Narrative: Loraine Aggarwal is a 68yo. wh fe. admitted with dehydration and diarrhea due to C.diff infection. She has pancreatic cancer and has been undergoing chemotherapy. She is a pt. of Dr. Don whom I am seeing in his absence today. She is feeling some better since rehdrating. She still has no appetite. She is taking her meds crushed. She has no other C/o or requests. She says her pain and nausea are adequately managed at present. She and her are going to have a hospice consult today. Objective - Review of Systems Generalized/Overall Review: Reports: Weakness, Weight loss EENTM: Reports: No Symptoms Reported Respiratory: Reports: No Symptoms Reported Cardiac: Reports: No Symptoms Reported Abdominal: Reports: Nausea, Abdominal Pain, Diarrhea Genitourinary Symptoms: Reports: No Symptoms Reported Musculoskeletal Complaints: Reports: No Symptoms Reported Neurological: Reports: No Symptoms Reported Skin: Reports: No Symptoms Reported Endocrine: Reports: No Symptoms Reported - Vitals Vitals: Last Vital Signs Temp 36.4 C 07/14/18 06:40 Pulse 99 07/14/18 08:13 Resp 14 07/14/18 06:40 BP 101/73 07/14/18 08:13 Pulse Ox 92 L 07/14/18 06:40 - Abnormal Lab Findings Abnormal Lab Findings: Abnormal Lab Results 07/13/18 07/13/18 Range/Units 08:57 08:57 WBC 2.3 L D (4.0-10.5) K/mm3 RBC 2.63 L (4.2-5.4) M/mm3 Hgb 8.3 L (12.5-16.0) gm/dL Hct 24.7 L (37.0-47.0) % MCH 31.6 H (27-31) pg RDW 14.4 H (11.5-14.0) % Plt Count 145 L (150-450) K/mm3 Band Neuts % (Manual) 33 H (0-2.0) % Lymphocytes % (Manual) 7 L (20-51) % Immature Granulocytes 10 H (0-1) Neutrophils # (Manual) 1.1 L (1.3-6.0) K/mm3 Lymphocytes # (Manual) 0.2 L (1.5-3.5) k/mm3 Platelet Estimate Decreased L (NORMAL) Carbon Dioxide 16.5 L (24-32.6) mmol/L Anion Gap 23.0 H (6.8-13.8) mmol/L BUN 80 H (3-23) mg/dL Creatinine 4.13 H D (0.4-1.4) mg/dL Est GFR (Non-Af Amer) 11 L (60-130) mL/min Calcium Adj for Albumin 10.3 H (8.4-10.2) mg/dL ALT 12 L (19-67) U/L Total Protein 5.4 L (6.2-8.2) gm/dL Albumin 1.2 L (3.4-5.0) gm/dl - Exam Constitutional: Present: Alert, Oriented x3, Cooperative, Well developed, Well nourished, Mild distress ENT Exam: Present: normal ENT inspection, hearing grossly normal Neck: Present: non-tender, full range of motion, supple Breasts: Present: Exam deferred Respiratory: Present: chest non-tender, lungs clear Cardiovascular/Chest: Present: normal peripheral pulses, regular rate, rhythm Abdomen: Present: soft, tender, guarding. Absent: Normal bowel sounds - Bowel sounds are hyperactive /Rectal: Present: Exam deferred Extremity: Present: normal range of motion Skin Exam: Present: normal color Lymphatic: Present: no adenopathy Neurologic: Present: vice president and portfolio manager II-XII nml as tested Appearance: Present: appropriate insight, no memory impairment Eye contact: Present: cooperative, good eye contact Thoughts: Present: normal thought pattern, no apparent hallucination Assessment/Plan Plan Narrative: Continue rehydration and Metronidazole for her C.Diff Treat nausea and pain as needed. Proceed with Hospice consult. - Problems/Diagnosis (1) Pancreatic cancer Problem: Chronic Qualifiers: Pancreatic malignancy location: unspecified Qualified Code(s): C25.9 - Malignant neoplasm of pancreas, unspecified (2) Dehydration, severe Problem: Acute (3) Acute renal failure Problem: Acute Qualifiers: Acute renal failure type: with acute renal cortical necrosis Qualified Code(s): N17.1 - Acute kidney failure with acute cortical necrosis (4) Clostridium difficile diarrhea Problem: Acute
[2018-07-14] MEDS: ROSUVASTATIN CALCIUM 10 MG TABLET PO SCH (21:48)
[2018-07-14] MEDS: MIRTAZAPINE 15 MG TABLET PO SCH (21:48)
[2018-07-15] MEDS: metroNIDAZOLE 500 MG TABLET PO SCH ×3 (00:01→17:35)
[2018-07-15] MEDS: NORMAL SALINE 1,000 ML IV PRN ×3 (03:17→17:26)
[2018-07-15] MEDS: SACCHAROMYCES BOULARDII 250 MG CAPSULE PO SCH ×2 (08:41→20:26)
[2018-07-15] MEDS: CLOPIDOGREL BISULFATE 75 MG TABLET PO SCH (08:42)
[2018-07-15] MEDS: METOPROLOL TARTRATE 50 MG TABLET PO SCH (08:43)
[2018-07-15] MEDS ORDERED: ONDANSETRON 8 MG TAB.RAPDIS PO PRN (09:34)
[2018-07-15] MEDS ORDERED: ACETAMINOPHEN 500 MG TABLET PO PRN (09:34)
[2018-07-15] MEDS: NYSTATIN 60 ML BTL PO SCH ×4 (09:52→20:26)
[2018-07-15 10:00] LABS: Hematocrit 28.5 % (37.0-47.0); Hemoglobin 9.3 gm/dL (12.5-16.0); Mean Cell Volume 95.3 fl (78-100); Mean Corpuscular Hemoglobin 31.1 pg (27-31); Mean Corpuscular Hgb Conc 32.6 g/dl (32-36); Mean Platelet Volume 10.2 fl (8-12.5); Platelet Count 190 K/mm3 (150-450); Red Blood Count 2.99 M/mm3 (4.2-5.4); Red Cell Distribution Width 15.2 % (11.5-14.0); White Blood Count 15.7 K/mm3 (4.0-10.5)
[2018-07-15 10:04] LABS: Total Cells Counted 100
--- NOTE | 2018-07-15 10:08 | PN ---
Subjective - Date and Time Seen Date: 07/15/18 Time: 09:40 Objective - Review of Systems Generalized/Overall Review: Reports: Weakness, Weight loss EENTM: Reports: Throat Pain, Mouth Pain Respiratory: Reports: No Symptoms Reported Cardiac: Reports: No Symptoms Reported Abdominal: Reports: Nausea, Vomiting, Abdominal Pain Genitourinary Symptoms: Reports: Oliguria Neurological: Reports: Weakness Skin: Reports: No Symptoms Reported Endocrine: Reports: No Symptoms Reported - Vitals Vitals: Last Vital Signs Temp 36.4 C 07/15/18 07:10 Pulse 106 H 07/15/18 08:43 Resp 12 07/15/18 07:10 BP 115/79 07/15/18 08:43 Pulse Ox 93 07/15/18 07:10 - Exam Constitutional: Present: Alert, Oriented x3, Cooperative, Well developed, Well nourished, Mild distress ENT Exam: Present: other - oral and pharyngeal thrush Neck: Present: non-tender, full range of motion, supple, normal inspection, trachea midline Breasts: Present: Exam deferred Respiratory: Present: chest non-tender, lungs clear, normal breath sounds Cardiovascular/Chest: Present: normal peripheral pulses, tachycardia Abdomen: Present: soft, tender, guarding, hypoactive /Rectal: Present: Exam deferred Extremity: Present: normal range of motion Skin Exam: Present: pallor, other - Turgor improving Lymphatic: Present: no adenopathy Neurologic: Present: health care law specialist II-XII nml as tested, no motor/sensory deficits, alert, normal mood/affect, oriented x 3 Appearance: Present: appropriate appearance, appropriate insight, neat, no memory impairment Eye contact: Present: cooperative, good eye contact, normal speech Thoughts: Present: normal thought pattern, no apparent hallucination Assessment/Plan Plan Narrative: Loraine appears to be a little more alert today and her face does not look as got reflecting improved hydration. She is starting to urinate now. She is complaining of sores in her mouth and tongue and throat and on inspection is found to have thrush. She was given her medicines crushed in applesauce this morning and threw some of that up. They will give it in pudding in the future. She does not tolerate applesauce well usually. I also ordered acetaminophen and ondansetron for her this morning. Continue IV fluids at 150 cc an hour until urine output increases. Recheck CBC, CMP, magnesium level this morning. - Problems/Diagnosis (1) Pancreatic cancer Problem: Chronic Qualifiers: Pancreatic malignancy location: unspecified Qualified Code(s): C25.9 - Malignant neoplasm of pancreas, unspecified (2) Dehydration, severe Problem: Acute (3) Acute renal failure Problem: Acute Qualifiers: Acute renal failure type: with acute renal cortical necrosis Qualified Code(s): N17.1 - Acute kidney failure with acute cortical necrosis (4) Clostridium difficile diarrhea Problem: Acute (5) Oral candidiasis Problem: Acute
[2018-07-15 10:24] LABS: Albumin * 1.3 gm/dl (3.4-5.0); Anion Gap 25.4 mmol/L (6.8-13.8); BUN/Creatinine Ratio 23.4 (9.0-21.6); Bilirubin, Total 0.6 mg/dL (0.0-1.1); Ca. Corrected For Albumin 10.6 mg/dL (8.4-10.2); Calcium * 8.8 mg/dL (7.9-10.9); Carbon Dioxide 13.7 mmol/L (24-32.6); Magnesium 1.8 mg/dL (1.2-2.8); Potassium 3.1 mmol/L (3.4-4.6); Total Protein 5.2 gm/dL (6.2-8.2)
[2018-07-15 10:37] LABS: Band 26 % (0-2.0); Eosinophil 1 % (0-3); Lymphocyte 4 % (20-51); Monocyte 9 % (0-9); Neutrophil 60 % (42-75); Neutrophil # 9.4 K/mm3 (1.3-6.0); Platelet Estimate Normal (NORMAL); RBC Morphology Normal (NORMAL)
[2018-07-15] MEDS: MIRTAZAPINE 15 MG TABLET PO SCH (20:26)
[2018-07-15] MEDS: ROSUVASTATIN CALCIUM 10 MG TABLET PO SCH (20:26)
[2018-07-15] MEDS: LORazepam 0.5 MG TABLET PO PRN (22:57)
[2018-07-16] MEDS: metroNIDAZOLE 500 MG TABLET PO SCH ×2 (00:48→11:25)
[2018-07-16] MEDS: NORMAL SALINE 1,000 ML IV PRN (03:34)
[2018-07-16] MEDS: LORazepam 0.5 MG TABLET PO PRN (06:58)
[2018-07-16] MEDS ORDERED: SCOPOLAMINE HYDROBROMIDE 1.5 MG PATC TD SCH (07:15)
[2018-07-16] MEDS ORDERED: ONDANSETRON HCL/PF 2 MG/ML VIAL IV PRN (10:25)
[2018-07-16] MEDS ORDERED: ALBUTEROL SULFATE 2.5 MG/0.5 ML VIAL.NEB IH PRN (10:25)
[2018-07-16] MEDS ORDERED: POLYVINYL ALCOHOL 150 DROP BTL EACHEYE PRN (10:25)
[2018-07-16] MEDS: MORPHINE SULFATE 4 MG/ML SYRG IV PRN ×8 (10:38→18:49)
--- NOTE | 2018-07-16 10:43 | PN ---
Subjective - Date and Time Seen Date: 07/16/18 Time: 10:31 Subjective Narrative: Has deteriorated since yesterday. She is no longer conversational, and has developed upper respiratory congestion. Her heart rate is increased to the 120s, and chest x-ray this morning show a new consolidation on the right. Family would like to pursue comfort measures and hospice benefits. Objective - Review of Systems Generalized/Overall Review: Reports: No Symptoms Reported - Review of systems obtained from family members and nursing. Denies: Fever Respiratory: Reports: Other - Upper respiratory congestion - Vitals Vitals: Last Vital Signs Temp 36.1 C 07/16/18 10:14 Pulse 131 H 07/16/18 10:04 Resp 28 H 07/16/18 06:48 BP 98/51 07/16/18 10:04 Pulse Ox 100 07/16/18 10:04 - Abnormal Lab Findings Abnormal Lab Findings: Abnormal Lab Results 07/15/18 07/15/18 Range/Units 09:50 09:50 Band Neuts % (Manual) 26 H (0-2.0) % Lymphocytes % (Manual) 4 L (20-51) % Neutrophils # (Manual) 9.4 H (1.3-6.0) K/mm3 Lymphocytes # (Manual) 0.6 L (1.5-3.5) k/mm3 Monocytes # (Manual) 1.4 H (0.0-1.0) k/mm3 Nucleated RBCs 2.0 H (0-1) % Sodium 145 H (132-142) mmol/L Plasma Sodium 146 H (130-142) mmol/L Potassium 3.1 L (3.4-4.6) mmol/L Chloride 109 H (97-106) mmol/L Carbon Dioxide 13.7 L (24-32.6) mmol/L Anion Gap 25.4 H (6.8-13.8) mmol/L BUN 79 H (3-23) mg/dL Creatinine 3.37 H D (0.4-1.4) mg/dL Est GFR (Non-Af Amer) 14 L D (60-130) mL/min BUN/Creatinine Ratio 23.4 H (9.0-21.6) Random Glucose 148 H D (70-110) mg/dL Calcium Adj for Albumin 10.6 H (8.4-10.2) mg/dL ALT 11 L (19-67) U/L Total Protein 5.2 L (6.2-8.2) gm/dL Albumin 1.3 L (3.4-5.0) gm/dl - Exam Constitutional: Present: Mild distress, Thin and frail ENT Exam: Present: dry mucous membranes Respiratory: Present: rhonchi Cardiovascular/Chest: Present: tachycardia Abdomen: Present: soft Extremity: Absent: lower extremity edema Neurologic: Present: other - Does not awaken for exam Assessment/Plan - Problems/Diagnosis (1) Pneumonia Problem: Suspected Qualifiers: Laterality: right Narrative: She has developed upper respiratory congestion since yesterday, and new consolidation in the right. Respirations and heart rate have increased. Discussed with family, and they do not want to increase her antibiotics. Morphine has been added for dyspnea. Will DC vitals unless family wishes for them to be checked. (2) Pancreatic cancer Problem: Chronic Qualifiers: Pancreatic malignancy location: unspecified Qualified Code(s): C25.9 - Malignant neoplasm of pancreas, unspecified Narrative: Patient was somewhat recently diagnosed with pancreatic cancer and underwent one round of chemotherapy, and had serious adverse effects. She had not eaten for several days prior to admission, and is unable to maintain p.o. nutrition or hydration. Her mentation has changed since yesterday, and she is no longer alert. Family members did speak with hospice earlier in the week and wanted to further investigate her options, however given her deterioration since yesterday they would like to pursue hospice. They have changed her code status to DNR. It is Wednesday, but will attempt to contact [facility] hospice to see if they would admit her to their service. We will add morphine, Ativan, scopolamine, atropine. Will discontinue metronidazole and medications she was given prior to admission that are not conducive to comfort measures. (3) Clostridium difficile diarrhea Problem: Acute
[2018-07-16] MEDS: METOPROLOL TARTRATE 50 MG TABLET PO SCH (11:05)
[2018-07-16] MEDS: NYSTATIN 60 ML BTL PO SCH ×3 (11:05→16:33)
[2018-07-16] MEDS: LORazepam 2 MG/ML DISP.SYRIN IV PRN ×3 (11:12→16:27)
[2018-07-16] MEDS: SACCHAROMYCES BOULARDII 250 MG CAPSULE PO SCH (11:25)
[2018-07-16] MEDS: CLOPIDOGREL BISULFATE 75 MG TABLET PO SCH (11:25)
[2018-07-16] MEDS: ATROPINE SULFATE 50 DROP BTL SL PRN ×3 (11:51→16:20)
[2018-07-16 23:37] VITALS: BP 0/0
--- NOTE | 2018-07-18 10:54 | DS ---
Discharge Summary - Provider Primary Care Provider: Raghav Don Admitting Clinician: Raghav Don - Diagnosis/Cause of (1) Pancreatic cancer Problems: Chronic (2) Pneumonia Problems: Suspected (3) Clostridium difficile diarrhea Problems: Acute - Summary Details (narrative): Patient with recent diagnosis of pancreatic cancer and recent chemo presented to the ED after having frequent diarrhea, weakness, loss of appetite since her chemo treatment. C. difficile was positive, and she had an acute renal injury. On admission, she and her family were interested in learning more about hospice benefits, and they met with the hospice ambulatory service representative during her stay. She was rehydrated, and looked somewhat better clinically. Overnight on Saturday 07/15, her mentation decreased and she developed respiratory congestion. New consolidation present on her CXR, and it was felt she developed pneumonia. She did not regain consciousness. Her family then decided to change to comfort measures only. Unable to officially begin hospice benefits, due to it being the weekend. Appropriate medications were added to her regimen, and she on the evening of 07/16. Procedures Performed: none - Additional Data Confirmation of as documented by pronouncing clinician: no pulse, no respirations Family: at bedside Practitioner(Attending/PCP) notified: Yes Was code activated: No [employer] notified: Yes
== END 2018-07-16 20:45 | disposition expired | DRG 435 ==
LOC: ER 10:59 → MS 13:16
PROVIDERS: ADMIT Family Medicine; ATTEND Family Medicine
DX: E86.0 Dehydration; Z87.19 Personal history of other diseases of the digestive system; Z79.82 Long term (current) use of aspirin; Z87.442 Personal history of urinary calculi; J18.9 Pneumonia, unspecified organism; N18.4 Chronic kidney disease, stage 4 (severe); Z68.1 Body mass index [BMI] 19.9 or less, adult; Z82.49 Family history of ischemic heart disease and other diseases of the circulatory system; Z80.0 Family history of malignant neoplasm of digestive organs; C25.9 Malignant neoplasm of pancreas, unspecified; R63.4 Abnormal weight loss; N17.9 Acute kidney failure, unspecified; A04.72 Enterocolitis due to Clostridium difficile, not specified as recurrent; Z51.5 Encounter for palliative care; F32.9 Major depressive disorder, single episode, unspecified; I12.9 Hypertensive chronic kidney disease with stage 1 through stage 4 chronic kidney disease, or unspecified chronic kidney disease; Z79.02 Long term (current) use of antithrombotics/antiplatelets; Z92.21 Personal history of antineoplastic chemotherapy; B37.0 Candidal stomatitis; G47.00 Insomnia, unspecified; Z85.89 Personal history of malignant neoplasm of other organs and systems; K86.81 Exocrine pancreatic insufficiency; Z66 Do not resuscitate; K83.1 Obstruction of bile duct; M31.30 Wegener's granulomatosis without renal involvement; Z87.891 Personal history of nicotine dependence; T45.1X5A Adverse effect of antineoplastic and immunosuppressive drugs, initial encounter
CPT/HCPCS: 36415; 71010; 71045; 74019; 74020; 80053; 81001; 83605; 83690; 83735; 85007; 85025; 87040; 87045; 87046; 87086; 87493; 93005; 96361; 96365; 99291